=== PATIENT | male | born 1940 | race Caucasian/White ===

== ENCOUNTER 2017-08-01 20:46 | Inpatient (IN) | payer OTHER, BC ==
[~2017-08-01] VITALS: Ht 177.8 cm; Wt 72.8 kg
[~2017-08-01 20:46] MED LIST: COZAAR100 MG PO; HYDROCHLOROTHIA25 MG PO; LOPRESSOR25 MG PO; PRAVACHOL20 MG PO
[2017-08-01 21:38] LABS: BASOPHIL (%) 0.2 % (0-1); EOSINOPHIL COUNT 0.1 K/uL (0-0.3); HEMATOCRIT 42.5 % (38.0-50.0); HEMOGLOBIN 14.8 G/DL (12.5-16.6); IMMATURE GRANULOCYTE (%) 0.6 % (0.0-0.7); LYMPHOCYTE (%) 16.9 % (15-42); LYMPHOCYTE COUNT 1.5 K/uL (1.0-2.8); MCH 31.6 PG (29.0-34.0); MCHC 34.8 G/DL (30.0-36.0); MCV 90.6 FL (86-99); MONOCYTE (%) 5.8 % (3-12); MONOCYTE COUNT 0.5 K/uL (0-0.8); NEUTROPHIL (%) 75.5 % (45-76); NEUTROPHIL COUNT 6.8 K/uL (1.8-6.4); PLATELET COUNT 147 K/uL (156-360); RBC DIS.WIDTH-SD 42.9 % (39-53); RED BLOOD COUNT 4.69 M/uL (4.00-5.50)
[2017-08-01 21:47] LABS: PTT 25.7 SEC (25-37)
[2017-08-01 21:49] LABS: ALBUMIN 4.1 g/dL (3.2-4.8); CHLORIDE 104 mEq/L (99-109); POTASSIUM 3.7 mEq/L (3.7-5.4); SODIUM 140 mEq/L (136-147)
[2017-08-01 21:51] LABS: GLUCOSE 171 mg/dL (70-99); TOTAL PROTEIN 6.6 g/dL (6.4-8.3)
[2017-08-01 21:53] LABS: TOTAL BILIRUBIN 0.6 mg/dL (0.0-1.0)
[2017-08-01 21:54] LABS: SERUM ETHYL ALCOHOL < 10 mg/dL
[2017-08-01 21:55] LABS: CREATININE 0.9 mg/dL (0.6-1.3); GFR ESTIMATE (CALCULATED) > 59 mL/min/ (58.99-99999)
[2017-08-01 21:56] LABS: ALKALINE PHOSPHATASE 57 IU/L (3-129)
[2017-08-01 21:57] LABS: AST (GOT) 14 IU/L (2-34); UREA NITROGEN (BUN) 20 mg/dL (9-23)
[2017-08-01 21:58] LABS: SALICYLATE < 5.0 MG/DL (15-30)
[2017-08-01 21:59] LABS: ACETAMINOPHEN (TYLENOL) < 10 mcg/mL (10-30); ALT (GPT) 15 IU/L (3-49)
[2017-08-01 22:00] LABS: LIPASE 87 U/L (1.0-51.0)
[2017-08-01 23:33] LABS: BASE EXCESS -2.7 mEq/L (-3 to +3); BICARBONATE 22.6 mEq/L (22-26); CARBOXY HGB 1.5 % (0-5); COMMENTS - BLOOD GASES C+A+; DEVICE VENTILATOR; FI02 40 %; MECHANICAL RATE 16 resp/min; METHEMOGLOBIN 1.2 % (0-1.5); MODE AC; PCO2 40 mm Hg (35-45); PEEP 5 CM/H20; PO2 78 mm Hg (80-100); SITE LR; TIDAL VOLUME 500 ML; TOTAL RESP RATE 16 resp/min; pH 7.36 (7.35-7.45)
[2017-08-01 23:47] LABS: APPEARANCE SL.HAZY ((CLEAR)); BILIRUBIN NEGATIVE; BLOOD MODERATE; COLOR YELLOW ((YELLOW)); GLUCOSE (STRIP) 50; KETONES NEGATIVE; LEUKOCYTES SMALL; NITRITE POSITIVE; PROTEIN (STRIP) 30; UROBILINOGEN 0.2 MG/DL (0.2-1.0)
[2017-08-02] VITALS (23 sets, daily range): BP systolic 96–168; BP diastolic 49–93
[2017-08-02 00:10] LABS: AMPHETAMINE NEGATIVE (500 ng/mL); BARBITURATES NEGATIVE (200 ng/mL); BENZODIAZEPINES PRESUMPTIVE POSITIVE (150 ng/mL); BUPRENORPHINE NEGATIVE (10 ng/mL); COCAINE NEGATIVE (150 ng/mL); METHADONE NEGATIVE (200 ng/mL); METHAMPHETAMINE NEGATIVE (500 ng/mL); OPIATES (MORPHINE) NEGATIVE (100 ng/mL); OXYCODONE NEGATIVE (100 ng/mL); PHENCYCLIDINE NEGATIVE (25 ng/mL); PROPOXYPHENE NEGATIVE (300 ng/mL); THC CANNABINOIDS NEGATIVE (50 ng/mL); TRICYCLIC ANTIDEPRESSANTS NEGATIVE (300 ng/mL)
[2017-08-02 00:44] LABS: AMORPHOUS PHOSPHATE CRYSTALS 3+; BACTERIA 1+ /HPF; EPITHELIAL CELLS RARE /HPF; MUCUS 1+ /LPF; UCUL ADDED? NO; WHITE BLOOD CELLS 0-5 /HPF (0-5)
[2017-08-02 02:57] LABS: BENZODIAZEPINES, URINE SCREEN Negative (200 ng/mL)
[2017-08-02 18:53] LABS: CK-MB 1.2 ng/mL (0.0-4.9)
[2017-08-02 19:08] LABS: CREATINE KINASE 40 IU/L (1-294); TOTAL CK 40 IU/L (1-294)
[2017-08-03] VITALS (24 sets, daily range): BP systolic 143–190; BP diastolic 64–113
[2017-08-03 06:22] LABS: CHLORIDE 108 MEQ/L (99-109); CREATININE 0.8 MG/DL (0.6-1.3); GFR ESTIMATE (CALCULATED) > 59 mL/min/ (58.99-99999); GLUCOSE 150 mg/dL (70-99); POTASSIUM 3.4 MEQ/L (3.7-5.4); UREA NITROGEN (BUN) 14 mg/dL (9-23)
[2017-08-03 06:34] LABS: SODIUM 148 MEQ/L (136-147)
[2017-08-03 15:12] LABS: BASE EXCESS 6.4 mEq/L (-3 to +3); BICARBONATE 31.9 mEq/L (22-26); CARBOXY HGB 2.6 % (0-5); COMMENTS - BLOOD GASES A+C+; DEVICE NC; METHEMOGLOBIN 1.5 % (0-1.5); O2 FLOW 2 L/MIN; PCO2 48 mm Hg (35-45); PO2 87 mm Hg (80-100); SITE LR; TOTAL RESP RATE 19 resp/min; pH 7.43 (7.35-7.45)
[2017-08-04] VITALS (20 sets, daily range): BP systolic 154–209; BP diastolic 73–119
[2017-08-05] VITALS (25 sets, daily range): BP systolic 118–182; BP diastolic 59–99
[2017-08-06] VITALS (24 sets, daily range): BP systolic 97–161; BP diastolic 50–86
[2017-08-06 06:47] LABS: CHLORIDE 101 MEQ/L (99-109); CREATININE 0.8 MG/DL (0.6-1.3); GFR ESTIMATE (CALCULATED) > 59 mL/min/ (58.99-99999); GLUCOSE 179 mg/dL (70-99); POTASSIUM 3.1 MEQ/L (3.7-5.4); SODIUM 141 MEQ/L (136-147); UREA NITROGEN (BUN) 18 mg/dL (9-23)
[2017-08-07] VITALS (15 sets, daily range): BP systolic 120–160; BP diastolic 64–88
[2017-08-07 09:32] LABS: BASOPHIL (%) 0.5 % (0-1); BASOPHIL COUNT 0.1 K/uL (0-0.1); EOSINOPHIL (%) 1.9 % (0-5); EOSINOPHIL COUNT 0.2 K/uL (0-0.3); HEMATOCRIT 39.8 % (38.0-50.0); HEMOGLOBIN 13.7 G/DL (12.5-16.6); IMMATURE GRANULOCYTE (%) 0.5 % (0.0-0.7); LYMPHOCYTE (%) 11.8 % (15-42); LYMPHOCYTE COUNT 1.1 K/uL (1.0-2.8); MCH 30.7 PG (29.0-34.0); MCHC 34.4 G/DL (30.0-36.0); MCV 89.2 FL (86-99); MONOCYTE COUNT 0.9 K/uL (0-0.8); NEUTROPHIL (%) 76.3 % (45-76); NEUTROPHIL COUNT 7.2 K/uL (1.8-6.4); RBC DIS.WIDTH-CV 12.6 % (11.8-14.6); RBC DIS.WIDTH-SD 41.4 % (39-53); RED BLOOD COUNT 4.46 M/uL (4.00-5.50); WHITE BLOOD COUNT 9.4 K/uL (4.1-10.2)
[2017-08-07 09:35] LABS: PLATELET COUNT 206 K/uL (156-360)
[2017-08-07 10:06] LABS: ALBUMIN 3.3 G/DL (3.2-4.8); ALKALINE PHOSPHATASE 49 IU/L (3-129); ALT (GPT) 8 IU/L (3-49); AST (GOT) 9 IU/L (2-34); CHLORIDE 104 MEQ/L (99-109); CREATININE 0.7 MG/DL (0.6-1.3); GFR ESTIMATE (CALCULATED) > 59 mL/min/ (58.99-99999); GLUCOSE 209 mg/dL (70-99); SODIUM 143 MEQ/L (136-147); TOTAL BILIRUBIN 0.7 MG/DL (0.0-1.0); TOTAL PROTEIN 5.7 G/DL (6.4-8.3); UREA NITROGEN (BUN) 24 mg/dL (9-23)
[2017-08-07 10:25] LABS: MAGNESIUM 2.3 mg/dl (1.3-2.7); PHOSPHORUS 3.6 mg/dL (2.5-4.9); URIC ACID 4.3 mg/dL (3.1-9.2)
[2017-08-07 10:39] LABS: HIGH-SENS C-REACTIVE PROTEIN > 8.00 MG/DL (0.02-0.20)
[2017-08-07 12:30] LABS: ERTH.SED.RATE 48 MM/HR (0-20)
[2017-08-08 04:06] VITALS: BP 152/70
[2017-08-08 07:20] VITALS: BP 141/66
[2017-08-08 10:30] LABS: THYROTROPIN (TSH) 0.73 MIU/L (0.4-5.5)
[2017-08-08 11:34] VITALS: BP 147/71
[2017-08-08 15:59] VITALS: BP 129/60
[2017-08-08 19:10] VITALS: BP 157/74
[2017-08-08 23:37] VITALS: BP 135/64
[2017-08-09 06:43] LABS: HDL CHOLESTEROL 29 MG/DL (Desirable>=40); LDL CHOLESTEROL 102 mg/dL (Desirable<100); NON-HDL CHOLESTEROL 122 mg/dL (Desirable<160); TOTAL CHOLESTEROL 151 mg/dL (Desirable<200); TRIGLYCERIDES 99 MG/DL (Normal: <150)
[2017-08-09 08:01] VITALS: BP 124/58
[2017-08-09 11:26] VITALS: BP 140/80
[2017-08-09] MEDS ORDERED: LEVEMIR100 UNIT/2 SC (14:36)
[2017-08-09] MEDS ORDERED: LOVENOX40 MG/0.4 SC (14:36)
[2017-08-09] MEDS ORDERED: ASPIR-LOW81 MG PO (14:36)
[2017-08-09] MEDS ORDERED: DOCUSATE SODIU100 MG PO (14:36)
[2017-08-09] MEDS ORDERED: NOVOLOG 10100 UNITS/ SC (14:36)
[2017-08-09] MEDS ORDERED: PRAVASTATIN SOD40 MG PO (14:36)
[2017-08-09] MEDS ORDERED: ONDANSETRON4 MG/2 ML IV (14:36)
[2017-08-09] MEDS ORDERED: DUONEB 2.5-0.5 M3 ML AEROSOL (14:36)
[2017-08-09] MEDS ORDERED: LOSARTAN POTAS100 MG PO (14:36)
[2017-08-09] MEDS ORDERED: ESCITALOPRAM OXA5 MG PO (14:36)
[2017-08-09] MEDS ORDERED: FAMOTIDINE20 MG PO (14:36)
[2017-08-09] MEDS ORDERED: LOPRESSOR25 MG PO (14:36)
[2017-08-09] MEDS ORDERED: GLUCAGEN1 MG/1 ML IM/SC (14:36)
[2017-08-09] MEDS ORDERED: HYDROCHLOROTHIA25 MG PO (14:36)
[2017-08-09 15:08] VITALS: BP 122/59
[2017-08-09 19:28] VITALS: BP 118/58
[2017-08-10 00:12] VITALS: BP 132/64
[2017-08-10 08:04] VITALS: BP 122/62
[2017-08-10 11:28] VITALS: BP 115/55
[2017-08-10 15:56] VITALS: BP 122/63
[2017-08-11 00:13] VITALS: BP 128/66
[2017-08-11 07:55] VITALS: BP 126/73
[2017-08-11 10:01] LABS: BASOPHIL (%) 0.5 % (0-1); EOSINOPHIL COUNT 0.2 K/uL (0-0.3); HEMATOCRIT 42.9 % (38.0-50.0); HEMOGLOBIN 14.7 G/DL (12.5-16.6); IMMATURE GRANULOCYTE (%) 0.9 % (0.0-0.7); LYMPHOCYTE (%) 20.2 % (15-42); LYMPHOCYTE COUNT 1.8 K/uL (1.0-2.8); MCH 31.3 PG (29.0-34.0); MCHC 34.3 G/DL (30.0-36.0); MCV 91.5 FL (86-99); MONOCYTE (%) 6.8 % (3-12); MONOCYTE COUNT 0.6 K/uL (0-0.8); NEUTROPHIL (%) 69.6 % (45-76); NEUTROPHIL COUNT 6.1 K/uL (1.8-6.4); RBC DIS.WIDTH-CV 12.7 % (11.8-14.6); RED BLOOD COUNT 4.69 M/uL (4.00-5.50); WHITE BLOOD COUNT 8.7 K/uL (4.1-10.2)
[2017-08-11 10:05] LABS: PLATELET COUNT 318 K/uL (156-360)
[2017-08-11 10:45] LABS: CHLORIDE 103 MEQ/L (99-109); CREATININE 0.9 MG/DL (0.6-1.3); GFR ESTIMATE (CALCULATED) > 59 mL/min/ (58.99-99999); GLUCOSE 224 mg/dL (70-99); POTASSIUM 4.6 MEQ/L (3.7-5.4); SODIUM 140 MEQ/L (136-147); UREA NITROGEN (BUN) 26 mg/dL (9-23)
[2017-08-11 10:46] LABS: URIC ACID 6.5 mg/dL (3.1-9.2)
[2017-08-11] MEDS ORDERED: LEVEMIR100 UNIT/2 SC ×2 (13:04→20:19)
[2017-08-11] MEDS ORDERED: COLCHICINE0.6 M1 PO (13:05)
[2017-08-11] MEDS ORDERED: PREDNISONE20 MG PO (13:08)
[2017-08-11 15:48] LABS: HEMOGLOBIN A1c (GLYCOHEMOGLOB) 6.4 % (Below 5.7)
[2017-08-11 16:38] VITALS: BP 149/76
[2017-08-11] MEDS ORDERED: LEXAPRO10 MG PO (20:17)
[2017-08-11] MEDS ORDERED: PRAVACHOL40 MG PO (20:19)
== END 2017-08-11 19:50 | DRG 917 ==
LOC: EME → EDBD 20:46 → EME 20:46 → 4WEST 08-02 03:02 → EDOF 08-02 03:02 → 5SOUTH 08-02 03:02 → ENRESERV 08-02 03:07 → 4WEST 08-02 04:21 → ENRESERV 08-07 09:46 → 5SOUTH 08-07 15:52
PROVIDERS: Emergency Medicine; Hospitalist; Internal Medicine; Internal Medicine Critical Care Medicine; Internal Medicine Pulmonary Disease; Physician Assistant; Surgery
PROC: 0BH17EZ Insertion of Endotracheal Airway into Trachea, Via Natural or Artificial Opening (ICD-10-PCS; 2017-08-01)
PROC: 5A1935Z Respiratory Ventilation, Less than 24 Consecutive Hours (ICD-10-PCS; principal; 2017-08-02)
DX: T42.4X2A Poisoning by benzodiazepines, intentional self-harm, initial encounter (principal); J96.00 Acute respiratory failure, unspecified whether with hypoxia or hypercapnia; G93.1 Anoxic brain damage, not elsewhere classified; J98.11 Atelectasis; E87.0 Hyperosmolality and hypernatremia; E86.9 Volume depletion, unspecified; E87.6 Hypokalemia; R13.10 Dysphagia, unspecified; J44.9 Chronic obstructive pulmonary disease, unspecified; F32.9 Major depressive disorder, single episode, unspecified; E11.9 Type 2 diabetes mellitus without complications; E78.5 Hyperlipidemia, unspecified; F41.9 Anxiety disorder, unspecified; I10 Essential (primary) hypertension; M10.9 Gout, unspecified; R40.2430 Glasgow coma scale score 3-8, unspecified time; Z85.828 Personal history of other malignant neoplasm of skin; Z23 Encounter for immunization; Z79.82 Long term (current) use of aspirin; Z79.4 Long term (current) use of insulin; Z86.73 Personal history of transient ischemic attack (TIA), and cerebral infarction without residual deficits; Z91.5 Personal history of self-harm
CPT/HCPCS: 36600; 70450; 71045; 74230; 80048; 80053; 80061; 81003; 82550; 82553; 82803; 82948; 83036; 83605; 83690; 83735; 84100; 84145 90; 84443; 84550; 84999; 85025; 85610; 85651; 85730; 86141; 87070; 87086; 87205; 87641; 90686; 92526 GN; 92610 GN; 92611 GN; 93005; 93306; 93880; 94002; 94003; 94640; 94640 76; 94760; 94799; 95819; 99202; 99281; 99285; G0480; J0295; J1650; J1815; J1885; J2310; J2920; J3480; J7030; J7050; J7512; S0028

== ENCOUNTER 2017-08-11 18:20 | Inpatient (IN) | payer OTHER, BC ==
[~2017-08-11] VITALS: Ht 176.5 cm; Wt 76.8 kg
[~2017-08-11 18:20] MED LIST changes: +ASPIR-LOW81 MG PO; +COLCHICINE0.6 M1 PO; +DOCUSATE SODIU100 MG PO; +DUONEB 2.5-0.5 M3 ML AEROSOL; +ESCITALOPRAM OXA5 MG PO; +FAMOTIDINE20 MG PO; +GLUCAGEN1 MG/1 ML IM/SC; +LEVEMIR100 UNIT/2 SC; +LOSARTAN POTAS100 MG PO; +LOVENOX40 MG/0.4 SC; +NOVOLOG 10100 UNITS/ SC; +ONDANSETRON4 MG/2 ML IV; +PRAVASTATIN SOD40 MG PO; +PREDNISONE20 MG PO
[2017-08-11 19:54] VITALS: BP 173/92
[2017-08-11] MEDS ORDERED: LEXAPRO10 MG PO (20:17)
[2017-08-11] MEDS ORDERED: PRAVACHOL40 MG PO (20:19)
[2017-08-11] MEDS ORDERED: LEVEMIR100 UNIT/2 SC (20:19)
[2017-08-12 07:44] VITALS: BP 121/66
[2017-08-12 15:31] VITALS: BP 137/66
[2017-08-13 07:16] VITALS: BP 173/83
[2017-08-13] MEDS ORDERED: LEXAPRO10 MG PO (09:58)
[2017-08-13] MEDS ORDERED: DONEPEZIL HCL5 MG PO (09:58)
== END 2017-08-13 13:11 | disposition home or self-care (01) | DRG 885 ==
LOC: 1WEST 18:20 → ENRESERV 18:22 → 1WEST 19:48
PROVIDERS: Psychiatry & Neurology Psychiatry
DX: F32.2 Major depressive disorder, single episode, severe without psychotic features (principal); F01.50 Vascular dementia, unspecified severity, without behavioral disturbance, psychotic disturbance, mood disturbance, and anxiety; E78.5 Hyperlipidemia, unspecified; I10 Essential (primary) hypertension; E11.9 Type 2 diabetes mellitus without complications; Z91.5 Personal history of self-harm
CPT/HCPCS: 70450; 82948; 93005; J1815; J7512